=== PATIENT | female | born 1985 | race Two or more races ===

== ENCOUNTER 2020-02-02 09:39 | Emergency (ER) | payer OTHER, SELFPAY ==
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
[2020-02-02 09:48] VITALS: BP 145/97; PULSE 113; RESP 16; TEMP 36.3; O2SAT 100
[2020-02-02] MEDS: KETOROLAC 30 MG/ML VIAL (*BKC) IM (10:35)
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
[2020-02-02 11:49] VITALS: BP 132/80; PULSE 88; RESP 18; O2SAT 100
== END 2020-02-02 11:51 | disposition home or self-care (01) ==
PROVIDERS: Emergency Provider General Practice
DX: M62.838 Other muscle spasm (principal); S39.012A Strain of muscle, fascia and tendon of lower back, initial encounter; G44.209 Tension-type headache, unspecified, not intractable; V49.40XA Driver injured in collision with unspecified motor vehicles in traffic accident, initial encounter
CPT/HCPCS: 72050; 72100; 96372; 99283; J1885

== ENCOUNTER 2021-01-30 16:50 | Emergency (ER) | payer OTHER, SELFPAY ==
--- NOTE | ~2021-01-30 | XR_ITS ---
EXAMINATION: XR knee RT 3V DATE: 01/30/2021 18:05 INDICATION: Right knee pain. TECHNIQUE: 3 views of right knee were obtained. COMPARISON: Right knee radiographs 12/24/2018 FINDINGS: Bone alignment is normal. No fracture. There is mild osteoarthritis of medial and lateral c ompartments characterized by tiny marginal osteophytes. No joint space narrowing. There is a small kn ee joint effusion. IMPRESSION: 1. Mild right knee osteoarthritis. 2. Small knee joint effusion. Reviewed, dictated and finalized at location A. CURVER
[2021-01-30 17:36] VITALS: BP 157/112; PULSE 88; RESP 18; TEMP 36.6; O2SAT 99
--- NOTE | 2021-01-30 19:07 | ED.GENADULT ---
HPI - General Adult General Chief complaint: Extremity Injury, Lower Stated complaint: Right knee pain x1 week Time Seen by Provider: 01/30/21 17:49 Source: patient Mode of arrival: ambulatory Limitations: no limitations History of Present Illness HPI narrative: Patient is a 35-year-old female presenting with chief complaint of right knee pain over the past week. Patient reports the pain is increased with activity including weightbearing and ambulation. Patient reports that when she is sitting knee is not uncomfortable. She reports she cannot fully extend it without discomfort. She reports some pain with flexion. 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 She also reports that she has 4 children. She reports that it is affecting her daily activity. She denies any known falls or signs of trauma. Related Data Allergies Allergy/AdvReac Type Severity Reaction Status Date / Time No Known Allergies Allergy Verified 02/02/20 09:56 Review of Systems Review of Systems: CONSTITUTIONAL: Denies fever, chills, or sweats. EYES: Denies visual changes, redness, or discharge. ENT: Denies rhinorrhea, congestion, sore throat, or otalgia. CARDIOVASCULAR: Denies chest pain, palpitations, or edema. RESPIRATORY: Denies cough or dyspnea. GASTROINTESTINAL: Denies abdominal pain, nausea, vomiting, or diarrhea. GENITOURINARY: Denies dysuria or hematuria. SKIN: Denies rash or itching. MUSCULOSKELETAL: Reports right knee pain denies back pain, joint pain, or myalgia. NEUROLOGIC: Denies headache, numbness, dizziness, or weakness. PSYCHIATRIC: Denies anxiety or depression. Exam Narrative: GENERAL: Well-appearing, well-nourished, and in no acute distress. HEAD: Normocephalic, atraumatic. EYES: PERRLA and EOMI. CHEST: Clear to auscultation. No respiratory distress. No tachypnea. EXTREMITIES: Full extension without discomfort. Flexion at 90 degrees tolerated. no significant laxity appreciated. Gait steady. SKIN: Warm, dry, no rash. NEURO: No focal deficits. Alert and oriented x3. PSYCH: Normal mood and affect. Course Vital Signs Vital signs: Vital Signs Temperature 97.8 F 01/30/21 17:36 Pulse Rate 88 01/30/21 17:36 Respiratory Rate 18 01/30/21 17:36 Blood Pressure 157/112 H 01/30/21 17:36 Pulse Oximetry 99 01/30/21 17:36 Temperature 97.8 F 01/30/21 17:36 Pulse Rate 88 01/30/21 17:36 Respiratory Rate 18 01/30/21 17:36 Blood Pressure 157/112 H 01/30/21 17:36 Pulse Oximetry 99 01/30/21 17:36 Medical Decision Making MDM Narrative Medical decision making narrative: Patient refused knee immobilizer. Patient would like Frankie wrap. Patient has been instructed to follow-up with primary care operation specialist for further investigation into her symptoms. Discussed with patient tendon and ligament injury and that MRI or further imaging or testing may be needed to evaluate them. Vital Signs Vital Signs: Vital Signs Temperature 97.8 F 01/30/21 17:36 Pulse Rate 88 01/30/21 17:36 Respiratory Rate 18 01/30/21 17:36 Blood Pressure 157/112 H 01/30/21 17:36 Pulse Oximetry 99 01/30/21 17:36 Temperature 97.8 F 01/30/21 17:36 Pulse Rate 88 01/30/21 17:36 Respiratory Rate 18 01/30/21 17:36 Blood Pressure 157/112 H 01/30/21 17:36 Pulse Oximetry 99 01/30/21 17:36 Imaging Data Radiologist's impression: ITS Impressions Knee X-Ray 01/30/21 18:07 IMPRESSION: 1. Mild right knee osteoarthritis. 2. Small knee joint effusion. Discharge Plan Discharge Clinical Impression: Knee sprain Patient Disposition: Home, Self-Care Condition: Improved Instructions: Antibiotic Form, Knee Sprain (ED) Additional Instructions: Take naproxen and cyclobenzaprine as directed. Do not take cyclobenzaprine if you be driving operate heavy machinery as it can cause drowsiness. Do not take any other NSAIDs with naproxen. You may take Tylenol
== END 2021-01-30 19:44 | disposition home or self-care (01) ==
PROVIDERS: Emergency Provider Emergency Medicine
DX: S83.91XA Sprain of unspecified site of right knee, initial encounter (principal); M17.11 Unilateral primary osteoarthritis, right knee; X58.XXXA Exposure to other specified factors, initial encounter
CPT/HCPCS: 73562; 99283

== ENCOUNTER 2021-08-11 18:51 | Emergency (ER) | payer OTHER, SELFPAY ==
--- NOTE | ~2021-08-11 | CT_ITS ---
EXAMINATION: CT abdomen pelvis wo con DATE: 08/11/2021 20:54 INDICATION: Lower abdominal pain, pressure, cramping for one day TECHNIQUE: Computed tomography (CT) of the abdomen and pelvis was performed without intravenous contr ast. Automated exposure control and iterative reconstruction technique were employed. Exam dose: 133 0.89 mGy-cm total exam DLP. COMPARISON: None. FINDINGS: The lung bases are clear of infiltrate or consolidation. Normal heart size. No pericardial or pleural effusion. There are numerous gallstones. No gallbladder wall thickening or pericholecystic fluid or fat strandi ng is noted. No bile duct or pancreatic duct dilatation. No hepatic, pancreatic, splenic, and adrenal or renal space-occupying mass lesion is evident. No urinary tract calculus or hydroureteronephrosis. The urinary bladder is evacuated. There is an IUD in expected position within the uterus. No adnexal mass lesion or abnormal pelvic flu id collection is noted. Normal caliber of the abdominal aorta. No intraperitoneal or retroperitoneal or pelvic mass lesion or adenopathy or ascites. Normal appendix. No bowel obstruction or intraperitoneal free air. Very small fat-containing umbilical hernia. Bilateral osteitis condensans ilii, more prominent on the left. No suspicious osteolytic or osteoblas tic lesion is noted. IMPRESSION: Cholelithiasis IUD within expected position in the uterus Bilateral osteitis condensans ilii Reviewed, dictated and finalized at Location [facility]. Reviewed, dictated and finalized at location A.
[2021-08-11 18:53] VITALS: BP 165/110; PULSE 87; RESP 20; TEMP 37.2; O2SAT 100
[2021-08-11 19:20] VITALS: BP 168/109; PULSE 90; RESP 18; TEMP 36.7; O2SAT 98
--- NOTE | 2021-08-11 19:23 | ED.FEMALEGU ---
HPI - Female Genitourinary General Chief complaint: Urogenital-Female Stated complaint: uterine pain Time Seen by Provider: 08/11/21 19:10 Related Data Allergies Allergy/AdvReac Type Severity Reaction Status Date / Time No Known Allergies Allergy Verified 02/02/20 09:56 Course Vital Signs Vital signs: Vital Signs Temperature 37.2 C 08/11/21 18:53 Pulse Rate 87 08/11/21 18:53 Respiratory Rate 20 08/11/21 18:53 Blood Pressure 165/110 H 08/11/21 18:53 Pulse Oximetry 100 08/11/21 18:53 Oxygen Delivery Room Air 08/11/21 18:53 Temperature 37.2 C 08/11/21 18:53 Pulse Rate 87 08/11/21 18:53 Respiratory Rate 20 08/11/21 18:53 Blood Pressure 165/110 H 08/11/21 18:53 Pulse Oximetry 100 08/11/21 18:53 Oxygen Delivery Room Air 08/11/21 18:53 Discharge Plan Discharge Prescriptions: No Action naproxen 500 mg tablet 500 mg PO BID PRN (Reason: pain) Qty: 20 0RF cyclobenzaprine 10 mg tablet 10 mg PO TID PRN (Reason: muscle spasm) Qty: 20 0RF Follow-up/Referrals: Juan Diego Awan MD [Primary Care Provider] -
--- NOTE | 2021-08-11 19:23 | ED.ABDPAIN ---
HPI - Abdominal Pain General Chief Complaint: Urogenital-Female Stated Complaint: uterine pain Time Seen by Provider: 08/11/21 19:10 Source: patient History of Present Illness HPI narrative: Patient presents with lower abdominal pain. Reports her pain started a couple hours ago and got progressively worse reports that feels like her uterus is cramping. Pain is primarily in the pubic area constant, no clear aggravating or alleviating factors. Reports some nausea denies vomiting diarrhea or urinary symptoms. She denies any vaginal bleeding or discharge. Related Data Allergies Allergy/AdvReac Type Severity Reaction Status Date / Time No Known Allergies Allergy Verified 02/02/20 09:56 Review of Systems Review of Systems: CONSTITUTIONAL: Denies fever, chills, or sweats. EYES: Denies visual changes, redness, or discharge. ENT: Denies rhinorrhea, congestion, sore throat, or otalgia. CARDIOVASCULAR: Denies chest pain, palpitations, or edema. RESPIRATORY: Denies cough or dyspnea. GASTROINTESTINAL: Reports abdominal pain with nausea GENITOURINARY: Denies dysuria or hematuria. SKIN: Denies rash or itching. MUSCULOSKELETAL: Denies back pain, joint pain, or myalgia. NEUROLOGIC: Denies headache, numbness, dizziness, or weakness. PSYCHIATRIC: Denies anxiety or depression. All systems reviewed & are unremarkable except as noted in HPI and below Exam Narrative: GENERAL: Well-appearing, well-nourished, and in mild distress due to pain HEAD: Normocephalic, atraumatic. EYES: PERRLA and EOMI. ENT: Nares clear, no rhinorrhea or epistaxis. Mucous membranes moist. NECK: Supple. No masses. No JVD CHEST: Clear to auscultation. No respiratory distress. No wheezes rales or rhonchi HEART: Regular rate and rhythm. No murmur heard. Normal peripheral pulses. ABDOMEN: Mild tenderness with palpation of the suprapubic area no rebound or guarding soft, nondistended EXTREMITIES: Normal range of motion. No edema. SKIN: Warm, dry, no rash. NEURO: No focal deficits. Alert and oriented x3. PSYCH: Normal mood and affect. Course Reevaluation(s) Reevaluation #1: Patient resting comfortably reports large improvement in her symptoms work-up reviewed with the patient. Patient is comfortable with the outpatient plan. Patient did decline a pelvic exam. Date: 08/11/21 Time: 21:39 Vital Signs Vital signs: Vital Signs Temperature 37.2 C 08/11/21 18:53 Pulse Rate 87 08/11/21 18:53 Respiratory Rate 20 08/11/21 18:53 Blood Pressure 165/110 H 08/11/21 18:53 Pulse Oximetry 100 08/11/21 18:53 Oxygen Delivery Room Air 08/11/21 18:53 Temperature 36.7 C 08/11/21 19:20 Pulse Rate 77 08/11/21 22:01 Respiratory Rate 18 08/11/21 22:01 Blood Pressure 155/106 H 08/11/21 22:01 Pulse Oximetry 98 08/11/21 22:01 Oxygen Delivery Room Air 08/11/21 19:20 MDM - Abdominal Pain MDM Narrative Medical decision making narrative: H&P as above, vss, pt initially looks in mild distress due to pain exam with lower abdominal pain, labs with mild leukocytosis otherwise clinically unremarkable, img without acute process, additional labs/img considered, symptomatic relief available as needed, on reevaluation pt continues to looks clinically well. Symptoms remain of unclear etiology, dns IUD migration, uterine perforation bowel perforation bowel obstruction appendicitis, diverticulitis, abscess, tubo-ovarian absces.s plan to tx/monitor as op w/ pcm f/u findings/plan discussed with pt, pt agree/comfortable with plan, return precautions given Lab Data Result diagrams: 08/11/21 19:31 08/11/21 19:31 Labs: Lab Results 08/11/21 08/11/21 08/11/21 Range/Units 19:31 19:31 20:29 WBC 13.7 H (4.5-10.0) K/mm3 RBC 4.57 (4.2-5.4) M/mm3 Hgb 13.7 (12.0-15.0) g/dL Hct 41.9 (37.0-47.0) % MCV 91.7 (80-100) fl MCH 30.0 (26-34) pg MCHC 32.7 (32-36) g/dl RDW 13.7 (11.5-14.5) % Plt Count 3
[2021-08-11 19:35] LABS: Basophils Absolute Auto 0.1 K/mm3 (0.0-0.1); Basophils Percent Auto 0.5 % (0.2-1.2); Eosinophils Absolute Auto 0.3 K/mm3 (0-0.3); Eosinophils Percent Auto 2.3 % (0-4.4); Hematocrit 41.9 % (37.0-47.0); Hemoglobin 13.7 g/dL (12.0-15.0); Immature Granulocyte Absolute 0.04 K/mm3 (0.00-0.031); Immature Granulocyte Percent A 0.3 % (0-0.5); Mean Corpuscular HGB Conc 32.7 g/dl (32-36); Mean Corpuscular Volume 91.7 fl (80-100); Mean Platelet Volume 9.7 fl (7.4-10.4); Monocytes Absolute Auto 1.1 K/mm3 (0.1-0.6); Monocytes Percent Auto 7.8 % (2.6-8.5); Neutrophils Absolute Auto 7.4 K/mm3 (1.3-6.7); Neutrophils Percent Auto 54.1 % (45.5-73.1); Platelet Count Result 333 k/mm3 (150-375); Red Blood Count 4.57 M/mm3 (4.2-5.4); Red Cell Distribution Width 13.7 % (11.5-14.5); White Blood Count 13.7 K/mm3 (4.5-10.0)
[2021-08-11 19:50] LABS: Alanine Aminotransferase 23 U/L (6-35); Albumin Level 4.1 g/dL (3.5-5.1); Alkaline Phosphatase 110 U/L (38-126); Anion Gap 4 mmol/L (8-16); Aspartate Amino Transferase 20 U/L (14-36); Bilirubin,Total 0.4 mg/dL (0.2-1.3); Blood Urea Nitrogen 9 mg/dL (7-17); Calcium 8.5 mg/dL (8.4-10.2); Carbon Dioxide 27 mmol/L (22-30); Chloride 105 mmol/L (98-107); Estimated CRCL calculation 126 ml/min; Estimated Glomerular Filt Rate > 60; Glucose 91 mg/dL (65-110); Lipase 35 U/L (23-300); Potassium 3.6 mmol/L (3.4-5.0); Sodium 136 mmol/L (137-145)
[2021-08-11] MEDS: MORPHINE SULFATE (*CRX) 4 MG/ML INJ IV PUSH (20:18)
[2021-08-11 20:19] VITALS: BP 156/108; PULSE 88; RESP 18; O2SAT 99
[2021-08-11 20:35] LABS: Appearance Urine Clear (Clear); Bilirubin Urine Negative (Negative); Blood Urine Negative (Negative); Color Urine Yellow (Yellow); Glucose Urine UA Negative (Negative); Ketones Urine Negative (Negative); Leukocyte Esterase Ur Negative LEU/UL (Negative); Nitrate Urine Negative (Negative); Protein Urine Negative (Negative); Specific Grav Ur >= 1.030 (1.001-1.035); Urobilinogen Urine 0.2 mg/dL (<2.0)
[2021-08-11 20:45] LABS: Lactic Acid Reflex 0.7 mmol/L (0.7-2.0)
[2021-08-11 20:48] LABS: Add Urine Microscopic? NO
[2021-08-11 22:01] VITALS: BP 155/106; PULSE 77; RESP 18; O2SAT 98
== END 2021-08-11 22:01 | disposition home or self-care (01) ==
PROVIDERS: Emergency Provider Emergency Medicine; PCP Emergency Medicine
DX: K80.20 Calculus of gallbladder without cholecystitis without obstruction (principal); Z97.5 Presence of (intrauterine) contraceptive device; M85.38 Osteitis condensans, other site
CPT/HCPCS: 36415; 74176; 80053; 81003; 81025; 83605; 83690; 85025; 96374; 99284; J2270

== ENCOUNTER 2022-10-08 12:44 | Outpatient (CLI) | payer OTHER, SELFPAY ==
--- NOTE | ~2022-10-08 | XR_ITS ---
Clinical Indication: Tobacco use PA and lateral views of the chest: Comparison: None Findings: The lungs are clear, without evidence of focal consolidation or pleural effusion. Cardiome diastinal silhouette is within normal limits. Bones and soft tissues are unremarkable. Impression: Normal chest. Reviewed, dictated and finalized at location . Impression: Normal chest.
[2022-10-08 13:28] LABS: Hematocrit 46.4 % (37.0-47.0); Hemoglobin 15.1 g/dL (12.0-15.0); Mean Corpuscular HGB Conc 32.5 g/dl (32-36); Mean Corpuscular Hemoglobin 30.7 pg (26-34); Mean Corpuscular Volume 94.3 fl (80-100); Mean Platelet Volume 9.6 fl (7.4-10.4); Platelet Count Result 347 k/mm3 (150-375); Red Blood Count 4.92 M/mm3 (4.2-5.4); Red Cell Distribution Width 13.7 % (11.5-14.5); White Blood Count 11.3 K/mm3 (4.5-10.0)
[2022-10-08 13:39] LABS: Alanine Aminotransferase 30 U/L (6-35); Albumin Level 4.2 g/dL (3.5-5.1); Alkaline Phosphatase 105 U/L (38-126); Anion Gap 3 mmol/L (8-16); Aspartate Amino Transferase 23 U/L (14-36); Bilirubin,Total 0.3 mg/dL (0.2-1.3); Blood Urea Nitrogen 6 mg/dL (7-17); Calcium 9.1 mg/dL (8.4-10.2); Carbon Dioxide 29 mmol/L (22-30); Chloride 101 mmol/L (98-107); Cholesterol 186 mg/dL (0-200); Estimated Glomerular Filt Rate > 60; Glucose 135 mg/dL (65-110); HDL Direct 51 mg/dL; Potassium 3.8 mmol/L (3.4-5.0); Sodium 133 mmol/L (137-145); Triglycerides 179 mg/dL (<150)
[2022-10-08 13:51] LABS: LDL Cholesterol Direct 99 mg/dL
[2022-10-08 14:00] LABS: Rheumatoid Factor < 12.0 IU/ML (<12)
[2022-10-08 14:06] LABS: Creatinine Urine 162.4 mg/dL
[2022-10-08 14:07] LABS: Microalbumin Urine Random 14.6 mg/L (0-16.7)
[2022-10-08 14:10] LABS: Thyroid Stimulating Hormone 0.772 uIU/mL (0.465-4.680)
[2022-10-08 14:20] LABS: Free T4 Free Thyroxine 1.24 ng/mL (0.78-2.19); Vitamin D 25 Hydroxy 23.2 ng/mL
[2022-10-08 14:30] LABS: Erythrocyte Sedimentation Rate 14 mm/hr (0-20)
[2022-10-08 17:17] LABS: Hemoglobin A1C 5.7 % (<5.7)
== END 2022-10-08 12:45 | disposition home or self-care (01) ==
PROVIDERS: PCP Emergency Medicine; Visit Provider Emergency Medicine
DX: M54.50 Low back pain, unspecified (principal); I10 Essential (primary) hypertension; Z00.00 Encounter for general adult medical examination without abnormal findings; D72.820 Lymphocytosis (symptomatic); L30.9 Dermatitis, unspecified; Z72.0 Tobacco use
CPT/HCPCS: 36415; 71046; 80053; 80061; 82043; 82306; 83036; 84439; 84443; 85027; 85652; 86038; 86430

== ENCOUNTER 2023-01-23 09:45 | Emergency (ER) | payer OTHER, SELFPAY ==
--- NOTE | ~2023-01-23 | CT_ITS ---
EXAMINATION: CT abdomen pelvis w con DATE: 01/23/2023 11:32 INDICATION: Lower abdominal cramping TECHNIQUE: Computed tomography (CT) of the abdomen and pelvis was performed with 100 cc Omnipaque 350 intravenous contrast. The dose-length product was 1361.32 mGy-cm. Automated exposure control and ite rative reconstruction technique were employed. COMPARISON: CT dated 08/11/2021. FINDINGS: Lung bases are unremarkable. Heart size normal. No significant pleural or pericardial effus ion. No significant vascular abnormality. No lymphadenopathy. IUD present in the endometrium. Fatty i nfiltration of the liver. Gallstones. The spleen, pancreas, adrenal glands and kidneys are unremarkab le. Nonobstructive bowel gas pattern. Bilateral asymmetric sclerosis of the sacroiliac joints unchang ed from prior examination. No free air or free fluid. Small fat-containing umbilical hernia. IMPRESSION: 1. No acute abdominal abnormality. 2: Cholelithiasis. Reviewed, dictated and finalized at location B. A THEORIST AND AUTHOR OF
[2023-01-23 10:29] VITALS: BP 153/96; PULSE 94; RESP 16; O2SAT 100
[2023-01-23 10:49] LABS: Basophils Absolute Auto 0.1 K/mm3 (0.0-0.1); Basophils Percent Auto 0.6 % (0.2-1.2); Eosinophils Absolute Auto 0.2 K/mm3 (0-0.3); Eosinophils Percent Auto 1.7 % (0-4.4); Hematocrit 44.4 % (37.0-47.0); Hemoglobin 14.3 g/dL (12.0-15.0); Immature Granulocyte Absolute 0.03 K/mm3 (0.00-0.031); Immature Granulocyte Percent A 0.3 % (0-0.5); Lymphocytes Absolute Auto 3.26 K/mm3 (0.9-3.2); Lymphocytes Percent Auto 28.8 % (18.3-44.2); Mean Corpuscular HGB Conc 32.2 g/dl (32-36); Mean Corpuscular Volume 93.1 fl (80-100); Mean Platelet Volume 9.7 fl (7.4-10.4); Monocytes Absolute Auto 0.9 K/mm3 (0.1-0.6); Neutrophils Absolute Auto 6.9 K/mm3 (1.3-6.7); Neutrophils Percent Auto 60.6 % (45.5-73.1); Platelet Count Result 347 k/mm3 (150-375); Red Blood Count 4.77 M/mm3 (4.2-5.4); Red Cell Distribution Width 14.2 % (11.5-14.5); White Blood Count 11.3 K/mm3 (4.5-10.0)
[2023-01-23 10:52] LABS: Appearance Urine Clear (Clear); Bilirubin Urine Negative (Negative); Blood Urine Negative (Negative); Color Urine Yellow (Yellow); Glucose Urine UA Negative (Negative); Ketones Urine Negative (Negative); Leukocyte Esterase Ur Negative LEU/UL (Negative); Nitrate Urine Negative (Negative); Protein Urine Negative (Negative); Specific Grav Ur 1.025 (1.001-1.035); Urobilinogen Urine 0.2 mg/dL (<2.0); pH Urine 5.5 (5.0-9.0)
--- NOTE | 2023-01-23 10:52 | ED.GENADULT ---
HPI - General Adult General Chief complaint: Nausea/Vomiting/Diarrhea Stated complaint: dehydration Time Seen by Provider: 01/23/23 10:25 History of Present Illness HPI narrative: 37-year-old female presenting to the emergency department for evaluation of nausea vomiting and diarrhea. Patient states symptoms started yesterday. Patient did present to the [place] urgent care today but was deferred to the emerged department due to suspected dehydration and abdominal cramping. Upon arrival to the emergency department patient denies any significant complaint and patient is resting comfortably. Patient does admit to daily THC use but has never had any issues with cannabinoid hyperemesis syndrome. Patient denies daily alcohol consumption. Related Data Allergies Allergy/AdvReac Type Severity Reaction Status Date / Time No Known Allergies Allergy Verified 02/02/20 09:56 Review of Systems Review of Systems: All systems reviewed & are unremarkable except as noted in HPI and below Exam Narrative: APPEARANCE: Well appearing, no pain, no distress, well-nourished. HEAD: normocephalic, atraumatic. EYES: PERRLA/EOMI, conjunctivae clear. NOSE: Normal no drainage EARS:TMS clear with good light reflex. THROAT: Pharynx clear, no exudate. NECK: Supple. No adenopathy, no masses. RESPIRATORY: Airway patent, respirations nonlabored. Clear to auscultation bilaterally, no rales, rhonchi, wheezing. CARDIOVASCULAR: Regular rate and rhythm without murmurs rubs or gallops. ABDOMINAL: Soft, nontender, nondistended, normal bowel sounds MUSCULOSKELETAL: Moves all extremities. Strength/ROM intact, No edema, No calf tenderness. NEURO: Alert. Cranial nerves II through XII intact. Grossly intact SKIN: Warm, dry. Normal Color Course Course Emergency Course: 37-year-old female presented emergency department for evaluation of nausea vomiting diarrhea abdominal cramping. Patient is afebrile but does have a leukocytosis of 11.3 with a stable hemoglobin. No significant abnormalities on her CMP UA is negative. CT scan showed no explanation for the patient's symptoms. Patient was provided Zofran for nausea control and encouraged to follow a clear liquid diet for the next few days. All questions concerns were addressed patient was comfortable with the plan for discharge and close follow-up. Vital Signs Vital signs: Vital Signs Pulse Rate 94 01/23/23 10:29 Respiratory Rate 16 01/23/23 10:29 Blood Pressure 153/96 H 01/23/23 10:29 Pulse Oximetry 100 01/23/23 10:29 Pulse Rate 94 01/23/23 10:29 Respiratory Rate 16 01/23/23 10:29 Blood Pressure 153/96 H 01/23/23 10:29 Pulse Oximetry 100 01/23/23 10:29 Medical Decision Making Differential Diagnosis Differential Diagnosis: nausea vomiting diarrhea abdominal cramping, diverticulosis, colitis Vital Signs Vital Signs: Vital Signs Pulse Rate 94 01/23/23 10:29 Respiratory Rate 16 01/23/23 10:29 Blood Pressure 153/96 H 01/23/23 10:29 Pulse Oximetry 100 01/23/23 10:29 Pulse Rate 94 01/23/23 10:29 Respiratory Rate 16 01/23/23 10:29 Blood Pressure 153/96 H 01/23/23 10:29 Pulse Oximetry 100 01/23/23 10:29 Lab Data Lab results reviewed: Yes I reviewed the patient's lab results. 01/23/23 10:37 01/23/23 10:37 Labs: Lab Results 01/23/23 Range/Units 10:37 WBC 11.3 H (4.5-10.0) K/mm3 RBC 4.77 (4.2-5.4) M/mm3 Hgb 14.3 (12.0-15.0) g/dL Hct 44.4 (37.0-47.0) % MCV 93.1 (80-100) fl MCH 30.0 (26-34) pg MCHC 32.2 (32-36) g/dl RDW 14.2 (11.5-14.5) % Plt Count 347 (150-375) k/mm3 MPV 9.7 (7.4-10.4) fl Immature Gran % (Auto) 0.3 (0-0.5) % Neut % (Auto) 60.6 (45.5-73.1) % Lymph % (Auto) 28.8 (18.3-44.2) % Lyon % (Auto) 8.0 (2.6-8.5) % Eos % (Auto) 1.7 (0-4.4) % Baso % (Auto) 0.6 (0.2-1.2) % Lymph # (Auto) 3.26 H (0.9-3.2) K/mm3 Lyon # (Auto) 0.9 H (0.1-0
[2023-01-23 10:56] LABS: Add Urine Microscopic? NO
[2023-01-23 11:01] LABS: Alanine Aminotransferase 27 U/L (6-35); Albumin Level 4.4 g/dL (3.5-5.1); Alkaline Phosphatase 89 U/L (38-126); Anion Gap 9 mmol/L (8-16); Aspartate Amino Transferase 30 U/L (14-36); Bilirubin,Total 0.4 mg/dL (0.2-1.3); Blood Urea Nitrogen 10 mg/dL (7-17); Calcium 9.2 mg/dL (8.4-10.2); Carbon Dioxide 26 mmol/L (22-30); Chloride 103 mmol/L (98-107); Estimated CRCL calculation 124 ml/min; Estimated Glomerular Filt Rate > 60; Glucose 110 mg/dL (65-110); Lipase 49 U/L (23-300); Potassium 3.8 mmol/L (3.4-5.0); Sodium 138 mmol/L (137-145)
[2023-01-23] MEDS: SODIUM CHLORIDE 0.9% IV 1,000 ML 999 ML IV CONT (11:05)
[2023-01-23] MEDS: ONDANSETRON INJ 4 MG/2 ML VIAL IV PUSH (11:05)
== END 2023-01-23 12:50 | disposition home or self-care (01) ==
PROVIDERS: Emergency Provider Emergency Medicine; PCP Emergency Medicine
DX: R11.2 Nausea with vomiting, unspecified (principal); R19.7 Diarrhea, unspecified; K80.20 Calculus of gallbladder without cholecystitis without obstruction
CPT/HCPCS: 36415; 74177; 80053; 81003; 81025; 83690; 85025; 96361; 96374; 99284; J2405; J7030; Q9967

== ENCOUNTER 2023-03-14 12:02 | Outpatient (CLI) | payer OTHER, SELFPAY ==
[2023-03-14 12:16] LABS: Basophils Absolute Auto 0.1 K/mm3 (0.0-0.1); Basophils Percent Auto 0.4 % (0.2-1.2); Eosinophils Absolute Auto 0.2 K/mm3 (0-0.3); Eosinophils Percent Auto 1.5 % (0-4.4); Hematocrit 44.1 % (37.0-47.0); Hemoglobin 14.6 g/dL (12.0-15.0); Immature Granulocyte Absolute 0.06 K/mm3 (0.00-0.031); Immature Granulocyte Percent A 0.5 % (0-0.5); Lymphocytes Absolute Auto 3.54 K/mm3 (0.9-3.2); Lymphocytes Percent Auto 26.7 % (18.3-44.2); Mean Corpuscular HGB Conc 33.1 g/dl (32-36); Mean Corpuscular Hemoglobin 30.4 pg (26-34); Mean Corpuscular Volume 91.9 fl (80-100); Mean Platelet Volume 9.5 fl (7.4-10.4); Monocytes Absolute Auto 1.3 K/mm3 (0.1-0.6); Monocytes Percent Auto 10.1 % (2.6-8.5); Neutrophils Absolute Auto 8.1 K/mm3 (1.3-6.7); Neutrophils Percent Auto 60.8 % (45.5-73.1); Platelet Count Result 386 k/mm3 (150-375); Red Cell Distribution Width 13.6 % (11.5-14.5); White Blood Count 13.3 K/mm3 (4.5-10.0)
[2023-03-14 14:01] LABS: Erythrocyte Sedimentation Rate 12 mm/hr (0-20)
[2023-03-14 14:02] LABS: Alanine Aminotransferase 24 U/L (6-35); Albumin Level 4.2 g/dL (3.5-5.1); Alkaline Phosphatase 94 U/L (38-126); Anion Gap 10 mmol/L (8-16); Aspartate Amino Transferase 20 U/L (14-36); Bilirubin,Total 0.4 mg/dL (0.2-1.3); Blood Urea Nitrogen 9 mg/dL (7-17); CRP 1.3 mg/dL (<1.0); Calcium 9.4 mg/dL (8.4-10.2); Carbon Dioxide 27 mmol/L (22-30); Chloride 103 mmol/L (98-107); Estimated Glomerular Filt Rate > 60; Glucose 98 mg/dL (65-110); Potassium 4.1 mmol/L (3.4-5.0); Sodium 140 mmol/L (137-145)
== END 2023-03-14 12:03 | disposition home or self-care (01) ==
LOC: ANHLAB 12:04
PROVIDERS: PCP Emergency Medicine; Visit Provider Internal Medicine Hematology & Oncology
DX: D72.829 Elevated white blood cell count, unspecified (principal)
CPT/HCPCS: 36415; 80053; 85025; 85652; 86140

== ENCOUNTER 2024-09-23 14:47 | Emergency (ER) | payer OTHER, SELFPAY ==
[2024-09-23 14:49] VITALS: BP 139/88; PULSE 104; RESP 16; TEMP 36.8; O2SAT 99
--- OUTSIDE RECORDS SUMMARY | 2024-09-23 14:52 | XMS_ITS | Data Portability ---
Author Organization [facility] Address [address] [place] [address] Assessment No assessment recorded. Plan of Treatment Reminders Order Date Submit Date Provider Last Modified By Organization Details Last Modified Time Details Appointments None recorded. Lab None recorded. Referral None recorded. Procedures nerve conduction study/EMG, lower extremity (PROC) 2019 [facility] (Cardiology & Emg), [address] [place] [address], [id number], 0 15:40:26 Surgeries None recorded. Imaging XR, lumbosacra l spine, 2 or 3 view 2019 [facility] (Imaging), [address] [place] [address], [id number], 0 15:25:25 Medication Orders lidocaine 4 % topical cream [id number] [address] [place], [place], [id number], 0 14:47:18 gabapentin 300 mg capsule 2019 [id number] [address] [place], [place], [id number], 0 14:47:18 Patient TargetsNo targets recorded. Patient Instructions Encounter Date Encounter Id Patient Instructions Last Modified By Organization Details Last Modified Time 11/06/2019 [id number] When You Want to Lose Weight: Care Instructions [facility] Not available 11/06/2019 14:37:38 Reason for Referral None Reported. Problems Name Problem SNOMED Code Status Onset Date Resolution Date Notes Provider Name and Address Organization Details Recorded Time Sciatica 34772801 Active 020 Axel Lerma MA rosetta, [facility] 11/06/2019 14:13:25 Problem Notes None recorded. Procedures Surgical History Date Name Laterality Status Provider Name and Address Organization Details Recorded Time Dilation and Curettage completed Axel Lerma MA [facility] 11/06/2019 14:14:22 Imaging Results None recorded. Procedure Notes None recorded. Medical Equipment None Reported. Allergies No known drug allergies Medications Name Sig Start Date Stop Date Status Note LastModified by Organization Details LastModified Time azithromycin 250 mg tablet active Not Available Not Available Not Available Lidocaine Viscous 2 % mucosal solution APPLY 3 ML BY TOPICAL ROUTE 3-4 TIMES DAILY active Not Available Not Available Not Available prednisone 20 mg tablet TAKE 2 TABLETS BY MOUTH EVERY DAY WITH FOOD FOR 5 DAYS active Not Available Not Available No t Available lidocaine 4 % topical cream Apply 1 application 4 times a day by topical route as directed for 30 days. 2019 active Not Available Not Available Not Avai lable clobetasol 0.05 % topical cream APPLY TOPICALLY TO THE AFFECTED AREA TWICE DAILY FOR 10 DAYS active Not Available Not Available No t Available triamcinolon e acetonide 0.1 % topical cream APPLY TOPICALLY TO THE AFFECTED AREA TWICE DAILY FOR 2 WEEKS active Not Available Not Available No t Available amlodipine 10 mg tablet active Not Available Not Available Not Available gabapentin 300 mg capsule TAKE 1 CAPSULE BY MOUTH THREE TIMES DAILY DIRECTED active Not Available Not Available Not Available sertraline 25 mg tablet TAKE 1 TABLET BY MOUTH DAILY active Not Available Not Available Not Available ergocalcifer ol (vitamin D2) 1,250 mcg (50,000 unit) capsule active Not Available Not Available Not Available albuterol sulfate HFA 90 mcg/actuatio n aerosol inhaler INHALE 2 PUFFS BY MOUTH EVERY 4 HOURS NEEDED active Not Available Not Available No t Available sertraline 50 mg tablet TAKE 1 TABLET BY MOUTH DAILY active Not Available Not Available Not Available doxycycline hyclate 100 mg tablet TAKE 1 TABLET BY MOUTH TWICE DAILY FOR 10 DAYS active Not Available Not Available No t Available naproxen 500 mg tablet TAKE 1 TABLET BY MOUTH TWICE DAILY active Not Available Not Available No t Available amoxicillin 875 mg-potassium clavulanate 125 mg tablet TAKE 1 TABLET BY MOUTH TWICE DAILY active Not Available Not Available No t Available Mirena active Not Available Not Availa ble Not Available Vitals Date Recorded Body height Body mass index (BMI) Body weight Body temperature Oxygen saturation Oxygen saturation in Arterial blood by Pulse oximetry Heart rate Systolic And Diastolic Provider Name and Address Organization Details Last Updated DateTime 0 160.66 cm 39.3 kg/m2 930322. 97 g 97.6 [degF] 100 % 100 % 84 /min 148/86 mm[Hg] Axel Lerma MA [facility] SI 0 14:23:34 Social History Question Answer Notes LastModified by [employer] Details LastModified Time Tobacco Smoking Status Current Every Day Smoker cigarettes JAMIE Victor, [facility] 11/06/2019 14:15:50 How Much Tobacco Do You Smoke? 0.25 PPD Information not available 11/06/2019 How Many Years Have You Smoked Tobacco? 18 Information not available 11/06/2019 Sex: Unknown Functional Status Question Answer Note LastModified by [email or web address] Details LastModified Time What is your level of alcohol consumption? Occasional Information not available 11/06/2019 Mental Status None recorded. Family History Relationship Description Onset Age of this Age Resolved Age Notes LastModified by Organization Details LastModified Time Sister Attention deficit hyperactivit y disorder bfalconerma Not available 06/2019 14:14:58 Sister Diabetes mellitus bfalconerma Not available 06/2019 14:15:08 Sister Migraine bfalconerma Not availa ble 11/06/2019 14:15:26 Mother Migraine bfalconerma Not availa ble 11/06/2019 14:15:26 Medical History Condition Response Anxiety Disorder Y Muscle, Joint, or Bone Problems Y Headaches Y Allergies Y Gynecological HistoryNo gynecological history recorded. Obstetrics History GPAL:G 0 P 0 0 0 0 Immunizations Vaccine Type Date Status Note Provider Nam e and Address Organization Details Recorded Time pneumococcal, unspecified formulation 03/04/2016 completed JAMIE Victor [facility] 11/06/2019 14:17:19 Past Encounters Encounter ID Performer Location Encounter Start Date Encounter Closed Date Diagnosis/Indication Diagnosis SNOMED-CT Code Diagnosis ICD10 Code Diagnosis Note [id number] Charity Villanueva MD [facility] (Adult [facility]) [address] [place] [address] 11/06/2019 13:44:46 11/12/2019 13:27:02 Chronic sciatica 978557883 M54.32 Discussed with patient, will try x ray and NCS on the lower legs. She bought her lidocaine patch OTC, willing to try cream and pill. 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 Morbid obesity 759197535 E66.01 Diet, exercise and lose weight. She is going to see a weight specialist next week, she said. Health Concerns Section Related Observation LastModified by Organization Detai ls LastModified Time None Recorded Concern Status LastModified by Organization Details LastModified Time None Recorded Advance Directives Directive None Recorded Payers Insurance Date Sequence Insurance Name Policy Number Policy Simon Covered Member ID Simon Member ID Guarantor Name 08/19/2023 1 [facility] (MEDICAID HMO) [id number] Lanie Nuñez [id number] Lanie Nuñez Notes Date Note Type Note Provider Name and Address Organization Details Recorded Time 11/06/2019 text/html Office visit, NKDA, not , on no medication, has had lower back pain for years, used to have pT, chiropractor therapy, massage therapy but in vain, not recal any trauma, injury, accident. right handed. pain radiating downing from left lower back to left groin. limping on the left side in tip-toe walklng , positive SLRT on the left side at about 35 degrees. Charity Villanueva MD Attn: Accounting[address] [place], [address], [facility] 11/06/2019 14:47:03 OBGyn Episode No OBEpisode recorded.
--- OUTSIDE RECORDS SUMMARY | 2024-09-23 14:52 | XMS_ITS | Clinical Summary ---
Author Organization [facility] Address [address] [place] [address] Care Team Providers Care Support Associate Name Role Phone Juan Diego Awan MD Primary Care Provider [phone] Allergies No known active allergies Medications amLODIPine (NORVASC) 10 mg tablet Take 10 mg by mouth daily. Active Active Problems No known active problems Family History Medical History Relation Name Comments Diabetes Sister 1 Relation Name Status Comments Daughter 1 Alive Daughter 2 Alive Daughter 3 Alive Daughter 4 Alive Mother Alive Sister 1 Sister 2 Alive Sister 3 Alive Social History Tobacco Use Types Packs/Day Years Used Date Smoking Tobacco: Every Day Cigarettes Smokeless Tobacco: Never Tobacco Cessation:Ready to Q uit: Not Asked; Counseling Given: Not Answered Alcohol Use Standard Drinks/Week Comments Yes 0 (1 standard drink = 0.6 oz pur e alcohol) socially Comments Unknown Sex and Gender Information Value Date Recorded Sex Assigned at Not on file Legal Sex Female 10:13 AM CDT Gender Identity Not on file Sexual Orientation Not on file Last Filed Vital Signs Vital Sign Reading Time Taken Comments Blood Pressure 141/94 04/05/2023 9:59 AM FOREIGN EXCHANGE DEALER Pulse 91 04/05/2023 9:57 AM FOREIGN EXCHANGE DEALER Temperature 35.9 C (96.7 F) 04/05/2023 9:57 AM FOREIGN EXCHANGE DEALER Respiratory Rate 14 04/05/2023 9:57 AM FOREIGN EXCHANGE DEALER Oxygen Saturation 98% 04/05/2023 9:57 AM FOREIGN EXCHANGE DEALER Inhaled Oxygen Concentration - - Weight 108 kg (238 lb) 04/05/2023 9:57 AM FOREIGN EXCHANGE DEALER Height 160 cm (5' 3) 03/14/2023 10:47 AM FOREIGN EXCHANGE DEALER Body Mass Index 42.16 03/14/2023 10:47 AM FOREIGN EXCHANGE DEALER Plan of Treatment Health Maintenance Due Date Last Done Comments HPV VACCINES (1 - 3-dose series) 11/24/1998 DTAP/TDAP/TD VACCINES (1 - Tdap) 11/24/2002 HEPATITIS B VACCINES (1 of 3 - 19+ 3-dose series) 11/03 HPV/Cotest (21-29) 11/24/2004 CERVICAL CANCER SCREENING 11/24/2013 HPV/Cotest (30-65) 11/24/2013 PAP SMEAR 11/24/2013 BREAST CANCER SCREENING 2023 INFLUENZA VACCINE (#1) 2024 Insurance [employer] [place] Care Teams Support Associate Relationship Specialty Start Date End Date Juan Diego Awan MD [address] [place] [phone] PCP - General Family Practice 03/14/23
--- OUTSIDE RECORDS SUMMARY | 2024-09-23 14:52 | XMS_ITS | Clinical Summary ---
Author Organization [facility] Address [address] [place] [address] Care Team Providers Care Emergency Detail Driver Name Role Phone Juan Diego Awan MD Primary Care Provider [phone] Source Comments [facility],non-owned Affiliates and Associated Physician Practices is amultiple site organization consisting of ambulatory clinics and hospital sitesin [place], [place], [place] and [place]. This disclosure is being madepursuant to the Care Everywhere program and may not contain all information available regarding this patient. Last updated 17.[facility] Allergies No known active allergies Medications * Be aware that medications may not be up to date on this document. Alwaysverify current medications with the patient. Levonorgest-Eth Estrad 91-Day (SEASONIQUE PO) Acti ve celecoxib (CeleBREX) 100 MG capsuleIndications: Primary osteoarthritis of right knee Take 1 (one) capsule by mouth 2 times daily 60 capsule 2 Active Social History Tobacco Use Types Packs/Day Years Used Date Smoking Tobacco: Some Days Comments No Sex and Gender Information Value Date Recorded Sex Assigned at Not on file Legal Sex Female 2:10 PM CDT Gender Identity Not on file Sexual Orientation Not on file Last Filed Vital Signs Vital Sign Reading Time Taken Comments Blood Pressure 124/82 05/16/2016 7:00 PM CDT Pulse 86 05/16/2016 7:00 PM CDT Temperature 36.8 C (98.2 F) 05/16/2016 7:00 PM CDT Respiratory Rate 16 05/16/2016 7:00 PM CDT Oxygen Saturation 99% 05/16/2016 7:00 PM CDT Inhaled Oxygen Concentration - - Weight 86.2 kg (190 lb) 05/16/2016 7:00 PM CDT Height 160 cm (5' 3) 05/16/2016 7:00 PM CDT Body Mass Index 33.66 05/16/2016 7:00 PM CDT Plan of Treatment Health Maintenance Due Date Last Done Comments LIPID TESTING 1983 MAMMOGRAM 1983 HIV SCREENING 11/24/1998 HEPATITIS C SCREENING 11/20/2001 DTAP/TDAP/TD VACCINES (1 - Tdap) 11/24/2002 HEPATITIS B VACCINE (1 of 3 - 19+ 3-dose series) 11/24/2002 PNEUMOCOCCAL VACCINE (1 of 2 - PCV) 11/24/2002 PAP SMEAR 11/24/2004 HPV VACCINE (1 - 3-dose SCDM series) 11/24/2010 COVID-19 VACCINE (1 - 2023-2 5 season) 2023 DEPRESSION SCREENING 03/04/2024 INFLUENZA VACCINE (#1) 2024 ZOSTER VACCINE (1 of 2) 11/24/2033 HIB VACCINE Aged Out No longer eligi ble based on patient's age to complete this topic MENINGOCOCCAL (Group B) VACC INE SHARED DECISION-MAKING Aged Out No longer eligibl e based on patient's age to complete this topic MENINGOCOCCAL GROUPS A/C/Y/W VACCINE Aged Out No longer eligible b ased on patient's age to complete this topic Insurance MEDICAID - [place] [facility] Care Teams Emergency Detail Driver Relationship Specialty Start Date End Date Juan Diego Awan MD [address] [place] [address] [address] [place] [address] PCP - General 10/31/21
--- OUTSIDE RECORDS SUMMARY | 2024-09-23 14:52 | XMS_ITS | Clinical Summary ---
Author Organization [facility] Address [address] [place] [address] Phone Care Team Providers Care Technical Solutions Director Name Role Phone Provider, Unknown Primary Care Provider Unavaila ble Social History Tobacco Use Types Packs/Day Years Used Date Smoking Tobacco: Never Assessed Comments Unknown Sex and Gender Information Value Date Recorded Sex Assigned at Not on file Legal Sex Female 11:29 PM CDT Gender Identity Not on file Sexual Orientation Not on file Plan of Treatment Upcoming Encounters Date Type Department Care Team (Late st Contact Info) Description 09/28/2024 2:30 PM CDT Office Visit [facility] - Family Medicine [facility] [address] [place] [address] Nneka Lyman N, SHIFT SUPERVISOR RN, INTERNATIONAL OPERATIONS MANAGER [address] [facility] [address] Insurance MEDICAID [place] Care Teams Technical Solutions Director Relationship Specialty Start Date End Date Provider, Unknown UNKNOWN PCP - General 07/19/16
--- OUTSIDE RECORDS SUMMARY | 2024-09-23 14:56 | XMS_ITS | Clinical Summary ---
Author Organization [facility] Address [address] [place] [address] Care Team Providers Care Parent Trainer Name Role Phone Charity Villanueva MD Primary Care Provider [phone] Allergies No known active allergies Medications lidocaine viscous 2 % solution Take 5 mLs by mouth every 6 (six) hours as needed for Pain. 100 mL 10/24/2020 Active traMADol 50 MG tabletIndication s:Acute Pain < 3 Day Supply Take 1 tablet (50 mg total) by mouth every 6 (six) hours as needed for Pain. Indications : Acute Pain < 3 Day Supply 12 tablet 10/24/2020 Active amLODIPine (NORVASC) 10 MG tablet Take 1 tablet (10 mg total) by mouth daily. Active Social History Tobacco Use Types Packs/Day Years Used Date Smoking Tobacco: Every Day Cigarettes Tobacco Cessation:Ready to Q uit: Not Asked; Counseling Given: Not Answered Alcohol Use Standard Drinks/Week Comments Not Currently 0 (1 standard drink = 0.6 oz pur e alcohol) Comments No Sex and Gender Information Value Date Recorded Sex Assigned at Not on file Legal Sex Female 9:19 PM CDT Gender Identity Not on file Sexual Orientation Not on file Last Filed Vital Signs Vital Sign Reading Time Taken Comments Blood Pressure 148/89 08/19/2023 10:59 AM CDT Pulse 102 08/19/2023 10:59 AM CDT Temperature 36.2 C (97.2 F) 08/19/2023 10:59 AM CDT Respiratory Rate 18 08/19/2023 10:59 AM CDT Oxygen Saturation 100% 08/19/2023 10:59 AM CDT Inhaled Oxygen Concentration - - Weight 104.3 kg (230 lb) 08/19/2023 10:59 AM CDT Height 160 cm (5' 3) 08/19/2023 10:59 AM CDT Body Mass Index 40.74 08/19/2023 10:59 AM CDT Plan of Treatment Health Maintenance Due Date Last Done Comments Annual Physical 11/24/1986 DTaP, Tdap and Td Vaccines (1 - Tdap) 11/24/2002 12/20/1989, 09/17/1986, 01/09/1985, Additional history exists Hepatitis B Vaccines (1 of 3 - 19+ 3-dose series) 11/24/2002 Pneumococcal Vaccine: Pediatrics (0 to 5 Years) and At-Risk Patients (6 to 49 Years) (1 of 2 - PCV) 11/24/2002 03/04/2016 HPV Vaccines (1 - 3-dose SCDM series) 11/24/2010 Cervical Cancer Screening Pap Smear (Age 30 to 64) Every 3 Years 09/02/2023 09/01/2020, 05/22/2012 COVID-19 Vaccine ( season) 2023 08/08/2020, 07/15/2020 Mammogram Screening 2023 Cervical Cancer Screening Pap with HPV Testing (Age 30 to 64) Every 5 Years 09/01/2025 09/01/2020 Cervical Cancer Screening with HPV 09/01/2025 Hepatitis C Completed 09/01/2020, 09/01/2020 Meningococcal B Vaccine Aged Out No l onger eligible based on patient's age to complete this topic Meningococcal Vaccine Aged Out No froylan teto eligible based on patient's age to complete this topic RSV Immunizations Under 20 Months Aged Out No longer eligible based on patient's age to complete this topic Procedures Procedure Name Priority Date/Time Associated Diagnosis Comments THINPREP IMAGING PAP REFLEX HPV MRNA E6/E7, CHLAM & GC Routine 05/22/2012 7:04 AM CDT from Last 3 Months or Most Recently Relevant to Health Maintenance Results * THINPREP IMAGING PAP REFLEX HPV MRNA E6/E7, CHLAM & GC (05/22/2012 7:04 AM CDT) REFLEX ADDED yes [facility] P TO EPIC CONVERSION 05/22/2012 7:04 AM CDT 05/22/2012 7:04 AM CDT Narrative [facility] TO EPIC CONVERSION - 05/22/2012 7:04 AM CDT This lab was migrated from [facility] and may be missing annotations or result text, please check the Media tab for the most complete results. us Paulina Ceja MD PATHOLOGY/CYTOLOGY ORDER HEBERT Final Result [facility] TO EPIC CONVERSION from Last 3 Months or Most Recently Relevant to Health Maintenance Insurance ANA Care Teams Parent Trainer Relationship Specialty Start Date End Date Charity Villanueva MD [address] [place] [address] PCP - General INTERNAL MEDICINE 10/24/20
--- NOTE | 2024-09-23 15:19 | ED.HA ---
HPI - Headache General Chief Complaint: Headache Stated Complaint: Headache/Blood Pressure Problem Time Seen by Provider: 09/23/24 15:16 Source: patient Mode of arrival: ambulatory Limitations: no limitations History of Present Illness HPI Narrative: 38-year-old female with a history of hypertension presented for complaint of a headache and elevated blood pressure today. States while at work today her blood pressure was 190/110. She has not taken her amlodipine 10 mg for 10 days due to switching doctors. States she has had some palpitations and feels shaky. She says she is scheduled with a new PCP in 5 days. Denies chest pain, shortness of breath, Dizziness, nausea, vomiting or leg swelling. she took Tylenol today at 4:00 a.m.. Related Data Allergies Allergy/AdvReac Type Severity Reaction Status Date / Time No Known Allergies Allergy Verified 02/02/20 09:56 Review of Systems Review of Systems: CONSTITUTIONAL: Denies body aches, fever, chills, or sweats. EYES: Denies visual changes, redness, or discharge. ENT: Denies rhinorrhea, congestion, sore throat, or otalgia. CARDIOVASCULAR: Denies chest pain, palpitations, or edema. RESPIRATORY: Denies cough or dyspnea. GASTROINTESTINAL: Denies abdominal pain, nausea, vomiting, or diarrhea. GENITOURINARY: Denies dysuria or hematuria. SKIN: Denies rash MUSCULOSKELETAL: Denies back pain, joint pain, or myalgia. NEUROLOGIC: reports headache, denies numbness, tingling, or weakness. PSYCH: Denies depression or anxiety. All systems reviewed & are unremarkable except as noted in HPI and below PMFSH Past Medical History Medical History (Updated 09/23/24 @ 15:35 by Maryan Garcia, NELIDA) Hypertension Comments At time of signature, I have reviewed and agree with nursing past medical, surgical, social and family history unless otherwise noted. Please see nursing chart for further information. There is no relevant family history pertinent to the presenting complaint Exam Narrative: GENERAL: Well-appearing, and in no acute distress. HEAD: Normocephalic, atraumatic. EYES: EOMI. appears to be guarding due to light sensitivity No redness or drainage. Conjunctivae normal. ENT: Mucous membranes pink and moist. NECK: Normal AROM. CHEST: No respiratory distress. Clear to auscultation. HEART: Tachycardic and regular rhythm. No murmur appreciated. Normal peripheral pulses. EXTREMITIES: Normal range of motion. No edema. SKIN: Warm, dry, no rash. Capillary refill normal. Normal skin turgor. NEURO: No focal deficits. Alert and oriented x3. Gait steady. PSYCH: Normal affect. Course Course Emergency Course: Patient is aware of diagnosis, understands and agrees to treatment plan. Anticipatory guidance given. Patient agrees to follow-up as directed and is aware of reasons to seek care at the emergency department. Portions of this record may have been created with voice recognition software Level of Care: Express Care Visit Vital Signs Vital signs: Vital Signs Temperature 98.2 F 09/23/24 14:49 Pulse Rate 104 H 09/23/24 14:49 Respiratory Rate 16 09/23/24 14:49 Blood Pressure 139/88 09/23/24 14:49 Pulse Oximetry 99 09/23/24 14:49 Oxygen Delivery Room Air 09/23/24 14:49 Temperature 98.2 F 09/23/24 14:49 Pulse Rate 104 H 09/23/24 14:49 Respiratory Rate 16 09/23/24 14:49 Blood Pressure 139/88 09/23/24 14:49 Pulse Oximetry 99 09/23/24 14:49 Oxygen Delivery Room Air 09/23/24 14:49 MDM - Headache MDM Narrative Medical decision making narrative: Discussed physical exam findings, headache reported at this time. Blood pressure under control at this time. Shared decision making, patient declines EKG and chest x-ray at this time. She reported and palpitations, ER transfer was advised. She states all of her symptoms are due to high blood pressure and if she gets the amlodipine refill until she is seen by PCP she should feel better.. Patient is scheduled with new PCP in 5 days. 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 Rx amlodipine until seen by pcp. Advised supportive measures and signs/symptoms to go to the ER. Pt is appropriate for outpt treatment and f/u. Differential Diagnosis Differential diagnosis: Likely migraine, tension headache, subarachnoid hemorrhage, headache and sinusitis Discharge Plan Discharge Clinical Impression: Headache Patient Disposition: Home Condition: Stable Instructions: Antibiotic Form, Hypertension (ED) Additional Instructions: Your blood pressure reading was elevated (above 120/80) please follow-up with your primary care provider for further evaluation and management. If you develop worsening Blood Pressure symptoms, (headache, vision changes, dizziness, vomiting, chest pain, etc) go to the ER. Call 911. Rest in a cool dark room Avoid screens (computers, tablets, phones, television) Drink plenty fluids. Tylenol 1000mg every 8 hours as needed your blood pressure medication amlodipine will be filled for 7 days only. Continue to monitor your blood pressure daily. Follow up with your primary care provider in 1 week Go to the ER for worsening symptoms or concerns Patient Language: Urdu Prescriptions: New amlodipine 10 mg tablet 10 mg PO DAILY Qty: 7 0RF Follow-up/Referrals: PHYSICIAN,MANAGER HOME IMPROVEMENT [Primary Care Provider] - Time of Disposition: 15:31
== END 2024-09-23 15:37 | disposition home or self-care (01) ==
PROVIDERS: Emergency Provider Nurse Practitioner Family
DX: R51.9 Headache, unspecified (principal); I10 Essential (primary) hypertension
CPT/HCPCS: 99213; G0463